=== PATIENT | male | born 1950 | race Two or more races ===

== ENCOUNTER 2022-12-04 21:43 | Inpatient (IN) | payer MEDICARE, BC ==
[~2022-12-04] VITALS: Ht 175.3 cm; Wt 70.3 kg
[~2022-12-04 21:43] MED LIST: ETOMIDATE 20 MG/10 ML VIAL ONE; PROPOFOL 200 MG/20 ML BOTTLE ONE; SUCCINYLCHOLINE CHLORIDE 200 MG/10 ML VIAL ONE
[2022-12-04] MEDS ORDERED: PIPERACILLIN SODIUM/TAZOBACTAM 3.375 G in IV DEXTROSE 5% 50 ML IV ONE (22:00)
[2022-12-04] MEDS ORDERED: AZITHROMYCIN IV 500 MG in IV DEXTROSE 5% 250 ML IV ONE (22:00)
[2022-12-04] MEDS ORDERED: CEFTAZIDIME 1 G in IV DEXTROSE 5% 50 ML IV ONE (22:00)
[2022-12-04] MEDS ORDERED: IV NORMAL SALINE 1000 ML BAG IV ONE (22:00)
[2022-12-04] MEDS ORDERED: CEFTAZIDIME 1 G VIAL ONE (22:05)
[2022-12-04] MEDS ORDERED: PIPERACILLIN/TAZOBACTAM/D5W 50 ML IV ONE (22:05)
[2022-12-04] MEDS ORDERED: AZITHROMYCIN 500MG/ D5W 250ML IVPB **ER PYXIS ONLY IV ONE (22:06)
[2022-12-04] MEDS ORDERED: PROPOFOL 100 ML IV PRN (22:15)
[2022-12-04] MEDS ORDERED: ETOMIDATE 20 MG/10 ML VIAL IV ONE (22:15)
[2022-12-04] MEDS ORDERED: PROPOFOL 200 MG/20 ML BOTTLE IV ONE (22:15)
[2022-12-04] MEDS ORDERED: SUCCINYLCHOLINE CHLORIDE 200 MG/10 ML VIAL IV ONE (22:15)
[2022-12-04 22:33] LABS: HEMATOCRIT 44.6 % (36.7-47.1); MEAN CORPUSCULAR HEMOGLOBIN 27.9 uug (23.8-33.4); MEAN CORPUSCULAR VOLUME 82.3 fL (73.0-96.2); PLATELET COUNT (AUTO) 230 K/uL (152-348)
[2022-12-04 22:49] LABS: CARBON DIOXIDE 20 mmol/L (21-32); CHLORIDE 93 mmol/L (98-107); CREATININE 1.5 mg/dL (0.6-1.3); GLUCOSE 169 mg/dL (74-106); POTASSIUM 4.8 mmol/L (3.5-5.1); UREA NITROGEN, BLOOD 18 mg/dL (7-18)
[2022-12-04 22:58] LABS: ABG BASE EXCESS -5.9 mmol/L; ABG HCO3 19.9 mmol/L; ABG PCO2 40.5 mmHg (35.0-45.0); ABG PO2 77.1 mmHg (75.0-100.0); ABG SITE RIGHT RADIAL; ABG TOTAL HEMOGLOBIN 14.3 G/dL (13.5-18.0); COHb 2.2 % (0.5-1.5); MetHb 0.2 % (0.0-1.5); O2Hb 90.8 % (94.0-97.0); VENT MODE VENT - A/C; VT, ABG 550 mL
[2022-12-04] MEDS ORDERED: LIDOCAINE 2% (GLYDO= UROJET) 10 ML JELLY MM ONE (23:00)
[2022-12-04 23:05] LABS: ALANINE AMINOTRANSFERASE 24 U/L (16-63); ALKALINE PHOSPHATASE 64 U/L (50-136); ASPARTATE AMINOTRANSFERASE 64 U/L (15-37); BILIRUBIN,TOTAL 1.1 mg/dL (0.2-1.0); TOTAL PROTEIN, SERUM 8.2 g/dL (6.4-8.2)
[2022-12-04 23:23] LABS: BILIRUBIN,DIRECT < 0.1 mg/dL (0.0-0.2)
[2022-12-05] VITALS (29 sets, daily range): BP systolic 80–100; BP diastolic 52–72
[2022-12-05] MEDS ORDERED: HALOPERIDOL LACTATE 5 MG/1 ML VIAL ONE
[2022-12-05] MEDS ORDERED: HALOPERIDOL LACTATE 5 MG/1 ML VIAL IV ONE
[2022-12-05 00:06] LABS: *BILIRUBIN,URIN NEGATIVE (NEGATIVE); *BLOOD, URINE 2+ (NEGATIVE); *CLARITY,URINE CLEAR (CLEAR); *COLOR,URINE YELLOW (YELLOW); *KETONES,URINE NEGATIVE (NEGATIVE); *UROBILINOGEN,URINE 0.2 E.U./dl (NORMAL); LEUKOCYTE ESTERASE ,URINE NEGATIVE (NEGATIVE); NITRITE, URINE NEGATIVE (NEGATIVE); PH,URINE 5.5 (5.0-8.0); UGLUCOSE NEGATIVE (NEGATIVE)
[2022-12-05] MEDS ORDERED: IV NORMAL SALINE 250 ML IV ONE (00:23)
[2022-12-05] MEDS ORDERED: IOHEXOL 350 100 ML INFUS..BTL ONE (00:23)
[2022-12-05] MEDS ORDERED: SWABABLE VALVE TRANSFER SET EA MC ONE (00:23)
[2022-12-05 00:42] LABS: BACTERIA,URINE FEW /HPF (NONE SEEN); SQUAMOUS EPITHELIAL CELL,UR NONE SEEN /HPF (NONE SEEN); WBC,URINE 0-3 /HPF (0-3)
[2022-12-05] MEDS ORDERED: ENOXAPARIN SODIUM 80 MG/0.8 ML DISP.SYRIN SQ SCH (01:15)
[2022-12-05] MEDS ORDERED: TERA2CAP4 PO (01:35)
[2022-12-05] MEDS ORDERED: VORI200T4 PO (01:35)
[2022-12-05] MEDS ORDERED: PROP20TA7 PO (01:35)
[2022-12-05] MEDS ORDERED: PRED2.5T PO (01:35)
[2022-12-05] MEDS ORDERED: BUSP5TAB3 PO (01:35)
[2022-12-05] MEDS ORDERED: GABA300C PO (01:35)
[2022-12-05] MEDS ORDERED: REMEDY ESSENTIAL ZINC PASTE 113 GM TP PRN (01:45)
[2022-12-05] MEDS ORDERED: ONDANSETRON 4 MG/2 ML VIAL IV PRN (01:45)
[2022-12-05] MEDS ORDERED: NOREPINEPHRINE BITARTRATE 8 MG in IV NORMAL SALINE 242 ML IV PRN ×2 (02:00→18:45)
[2022-12-05] MEDS ORDERED: CEFEPIME HCL 2 G in IV DEXTROSE 5% 100 ML IV SCH (03:00)
[2022-12-05] MEDS ORDERED: methylPREDNISolone SOD SUCC 125 MG/2 ML VIAL IV SCH (03:28)
[2022-12-05] MEDS: IV D5/ 0.9% NACL 1,000 ML IV PRN ×2 (03:44→10:33)
[2022-12-05] MEDS ORDERED: VANCOMYCIN IV 1,500 MG in IV DEXTROSE 5% 500 ML IV ONE (04:00)
[2022-12-05] MEDS ORDERED: NOREPINEPHRINE BITARTRATE 4 MG/4 ML VIAL IV ONE (04:02)
[2022-12-05] MEDS ORDERED: CEFEPIME HCL 1 G VIAL ONE (04:03)
[2022-12-05] MEDS ORDERED: VANCOMYCIN 1000 MG VIAL ONE (04:03)
[2022-12-05] MEDS ORDERED: VANCOMYCIN HCL 500 MG VIAL ONE (04:03)
[2022-12-05 06:27] LABS: HEMATOCRIT 39.8 % (36.7-47.1); MEAN CORPUSCULAR HEMOGLOBIN 26.5 uug (23.8-33.4); PLATELET COUNT (AUTO) 175 K/uL (152-348)
[2022-12-05 07:07] LABS: ALANINE AMINOTRANSFERASE 34 U/L (16-63); ALKALINE PHOSPHATASE 54 U/L (50-136); ASPARTATE AMINOTRANSFERASE 49 U/L (15-37); BILIRUBIN,TOTAL 0.3 mg/dL (0.2-1.0); CARBON DIOXIDE 23 mmol/L (21-32); CHLORIDE 100 mmol/L (98-107); CHOLESTEROL 86 mg/dL (<200); CREATININE 1.3 mg/dL (0.6-1.3); GLUCOSE 258 mg/dL (74-106); HDL CHOLESTEROL 18 mg/dL (40-60); MAGNESIUM 1.7 mg/dL (1.8-2.4); PHOSPHOROUS 2.2 mg/dL (2.5-4.9); POTASSIUM 4.2 mmol/L (3.5-5.1); TOTAL PROTEIN, SERUM 6.7 g/dL (6.4-8.2); TRIGLYCERIDES 186 MG/DL (30-150); UREA NITROGEN, BLOOD 17 mg/dL (7-18)
[2022-12-05] MEDS: PROPOFOL 100 ML IV PRN ×3 (07:15→23:55)
[2022-12-05] MEDS: PANTOPRAZOLE SODIUM 40 MG VIAL IV SCH (08:06)
[2022-12-05] MEDS: CEFEPIME HCL 2 G in IV DEXTROSE 5% 100 ML IV SCH ×2 (08:24→20:55)
[2022-12-05] MEDS: ASPIRIN 81 MG TAB.CHEW PO SCH (08:32)
[2022-12-05] MEDS ORDERED: DEXTROSE 50% 50 ML DISP.SYRIN IV PRN (08:45)
[2022-12-05 09:07] LABS: ABG BASE EXCESS -4.9 mmol/L; ABG HCO3 20.8 mmol/L; ABG PH 7.324 (7.350-7.450); ABG PO2 124.4 mmHg (75.0-100.0); ABG SITE RIGHT RADIAL; ABG TOTAL HEMOGLOBIN 14.7 G/dL (13.5-18.0); COHb 0.9 % (0.5-1.5); MetHb 0.2 % (0.0-1.5); O2Hb 97.1 % (94.0-97.0); VENT MODE VENT - A/C; VT, ABG 550 mL
[2022-12-05] MEDS: BLOOD SUGAR DIAGNOSTIC 1 EACH STRIP VI SCH ×4 (09:08→23:47)
[2022-12-05] MEDS: INSULIN REGULAR, HUMAN 300 UNIT/3 ML VIAL SQ PRN ×3 (09:10→18:08)
[2022-12-05] MEDS: MAGNESIUM SULFATE/D5W 100 ML IV SCH ×2 (09:28→10:25)
[2022-12-05] MEDS ORDERED: SODIUM PHOSPHATE MM 15 MMOL in IV NORMAL SALINE 250 ML IV ONE (12:00)
[2022-12-05] MEDS: methylPREDNISolone SOD SUCC 125 MG/2 ML VIAL IV SCH ×2 (13:33→21:01)
[2022-12-05] MEDS ORDERED: PRED5DRO24 LEFTEYE (18:56)
[2022-12-05] MEDS: prednisoLONE ACET 1% OPHT DROP 5 ML BOTTLE LEFTEYE SCH (20:56)
[2022-12-05] MEDS: ENOXAPARIN SODIUM 40 MG/0.4 ML DISP.SYRIN SQ SCH (21:00)
[2022-12-06] VITALS (37 sets, daily range): BP systolic 84–148; BP diastolic 51–77
[2022-12-06] MEDS: INSULIN REGULAR, HUMAN 300 UNIT/3 ML VIAL SQ PRN ×5 (00:04→23:33)
[2022-12-06] MEDS: prednisoLONE ACET 1% OPHT DROP 5 ML BOTTLE LEFTEYE SCH ×4 (02:20→21:16)
[2022-12-06] MEDS: PROPOFOL 100 ML IV PRN ×5 (04:19→20:15)
[2022-12-06 05:10] LABS: HEMATOCRIT 35.8 % (36.7-47.1); MEAN CORPUSCULAR HEMOGLOBIN 26.5 uug (23.8-33.4); MEAN CORPUSCULAR VOLUME 81.5 fL (73.0-96.2); PLATELET COUNT (AUTO) 165 K/uL (152-348)
[2022-12-06 05:30] LABS: BILIRUBIN,TOTAL 0.2 mg/dL (0.2-1.0); CREATININE 0.9 mg/dL (0.6-1.3); MAGNESIUM 2.4 mg/dL (1.8-2.4); PHOSPHOROUS 2.4 mg/dL (2.5-4.9); TOTAL PROTEIN, SERUM 6.3 g/dL (6.4-8.2)
[2022-12-06 05:39] LABS: THYROID STIMULATING HORMONE 0.188 mIU/mL (0.358-3.740)
[2022-12-06 06:28] LABS: ABG BASE EXCESS -5.1 mmol/L; ABG HCO3 19.6 mmol/L; ABG PCO2 35.5 mmHg (35.0-45.0); ABG PO2 76.5 mmHg (75.0-100.0); ABG SITE RIGHT RADIAL; ABG TOTAL HEMOGLOBIN 13.1 G/dL (13.5-18.0); COHb 0.9 % (0.5-1.5); MetHb 0.1 % (0.0-1.5); O2Hb 93.8 % (94.0-97.0); VENT MODE VENT - A/C; VT, ABG 550 mL
[2022-12-06] MEDS: methylPREDNISolone SOD SUCC 125 MG/2 ML VIAL IV SCH ×3 (06:28→21:11)
[2022-12-06] MEDS: BLOOD SUGAR DIAGNOSTIC 1 EACH STRIP VI SCH ×4 (06:31→23:31)
[2022-12-06] MEDS: CEFEPIME HCL 2 G in IV DEXTROSE 5% 100 ML IV SCH ×2 (08:37→20:16)
[2022-12-06] MEDS: PANTOPRAZOLE SODIUM 40 MG VIAL IV SCH (08:43)
[2022-12-06] MEDS: ASPIRIN 81 MG TAB.CHEW PO SCH (08:43)
[2022-12-06] MEDS: VANCOMYCIN IV 1,250 MG in IV DEXTROSE 5% 250 ML IV SCH ×2 (09:17→21:11)
[2022-12-06] MEDS: LORAZEPAM 2 MG/1 ML VIAL IV PRN (10:43)
[2022-12-06] MEDS: IPRATROPIUM BROMIDE 0.5 MG/2.5 ML NEBU NEB SCH ×2 (13:41→19:35)
[2022-12-06] MEDS: ALBUTEROL SULFATE 2.5 MG/3 ML NEBU NEB SCH ×2 (13:41→19:35)
[2022-12-06] MEDS ORDERED: SODIUM PHOSPHATE MM 15 MMOL in IV NORMAL SALINE 250 ML IV ONE (16:00)
[2022-12-06] MEDS: ENOXAPARIN SODIUM 40 MG/0.4 ML DISP.SYRIN SQ SCH (20:17)
[2022-12-07] VITALS (33 sets, daily range): BP systolic 97–155; BP diastolic 50–84
[2022-12-07] MEDS: ALBUTEROL SULFATE 2.5 MG/3 ML NEBU NEB SCH ×4 (00:59→19:29)
[2022-12-07] MEDS: IPRATROPIUM BROMIDE 0.5 MG/2.5 ML NEBU NEB SCH ×4 (00:59→19:29)
[2022-12-07] MEDS: PROPOFOL 100 ML IV PRN ×6 (02:17→23:00)
[2022-12-07] MEDS: methylPREDNISolone SOD SUCC 125 MG/2 ML VIAL IV SCH ×3 (06:08→21:41)
[2022-12-07] MEDS: prednisoLONE ACET 1% OPHT DROP 5 ML BOTTLE LEFTEYE SCH ×4 (06:09→20:48)
[2022-12-07 06:13] LABS: ABG BASE EXCESS -5.9 mmol/L; ABG HCO3 19.9 mmol/L; ABG PCO2 39.9 mmHg (35.0-45.0); ABG PH 7.315 (7.350-7.450); ABG PO2 81.8 mmHg (75.0-100.0); ABG SITE LEFT RADIAL; ABG TOTAL HEMOGLOBIN 12.8 G/dL (13.5-18.0); COHb 0.4 % (0.5-1.5); MetHb 0.2 % (0.0-1.5); O2Hb 94.2 % (94.0-97.0); VENT MODE VENT - A/C; VT, ABG 550 mL
[2022-12-07 06:16] LABS: HEMATOCRIT 37.2 % (36.7-47.1); MEAN CORPUSCULAR HEMOGLOBIN 26.6 uug (23.8-33.4); MEAN CORPUSCULAR VOLUME 81.5 fL (73.0-96.2); PLATELET COUNT (AUTO) 236 K/uL (152-348)
[2022-12-07 06:20] LABS: CREATININE 0.9 mg/dL (0.6-1.3); MAGNESIUM 2.7 mg/dL (1.8-2.4); PHOSPHOROUS 2.5 mg/dL (2.5-4.9)
[2022-12-07] MEDS: BLOOD SUGAR DIAGNOSTIC 1 EACH STRIP VI SCH ×4 (07:25→23:46)
[2022-12-07] MEDS: INSULIN REGULAR, HUMAN 300 UNIT/3 ML VIAL SQ PRN ×3 (07:27→23:51)
[2022-12-07] MEDS: CEFEPIME HCL 2 G in IV DEXTROSE 5% 100 ML IV SCH ×2 (08:45→20:05)
[2022-12-07] MEDS: PANTOPRAZOLE SODIUM 40 MG VIAL IV SCH (08:45)
[2022-12-07] MEDS: ASPIRIN 81 MG TAB.CHEW PO SCH (08:45)
[2022-12-07 09:39] LABS: ABG BASE EXCESS -3.4 mmol/L; ABG PCO2 41.1 mmHg (35.0-45.0); ABG PH 7.347 (7.350-7.450); ABG PO2 81.1 mmHg (75.0-100.0); ABG SITE RIGHT RADIAL; ABG TOTAL HEMOGLOBIN 12.5 G/dL (13.5-18.0); COHb 0.3 % (0.5-1.5); MetHb 0.2 % (0.0-1.5); O2Hb 94.5 % (94.0-97.0); VENT MODE VENT - A/C; VT, ABG 420 mL
[2022-12-07] MEDS ORDERED: IV D5 1/2 NS 1000 ML 1,000 ML IV ONE (11:45)
[2022-12-07] MEDS: LORAZEPAM 2 MG/1 ML VIAL IV PRN (15:59)
[2022-12-07] MEDS: ENOXAPARIN SODIUM 40 MG/0.4 ML DISP.SYRIN SQ SCH (20:47)
[2022-12-08] VITALS (26 sets, daily range): BP systolic 117–170; BP diastolic 60–92
[2022-12-08] MEDS: IPRATROPIUM BROMIDE 0.5 MG/2.5 ML NEBU NEB SCH ×4 (01:04→19:42)
[2022-12-08] MEDS: ALBUTEROL SULFATE 2.5 MG/3 ML NEBU NEB SCH ×4 (01:04→19:42)
[2022-12-08] MEDS: prednisoLONE ACET 1% OPHT DROP 5 ML BOTTLE LEFTEYE SCH ×4 (03:39→20:20)
[2022-12-08] MEDS: PROPOFOL 100 ML IV PRN ×5 (04:37→22:52)
[2022-12-08] MEDS: LORAZEPAM 2 MG/1 ML VIAL IV PRN (04:38)
[2022-12-08 05:47] LABS: HEMATOCRIT 35.7 % (36.7-47.1); MEAN CORPUSCULAR HEMOGLOBIN 26.7 uug (23.8-33.4); MEAN CORPUSCULAR VOLUME 81.1 fL (73.0-96.2); PLATELET COUNT (AUTO) 279 K/uL (152-348)
[2022-12-08 06:01] LABS: BILIRUBIN,TOTAL 0.3 mg/dL (0.2-1.0); MAGNESIUM 2.6 mg/dL (1.8-2.4); TOTAL PROTEIN, SERUM 6.2 g/dL (6.4-8.2)
[2022-12-08] MEDS: BLOOD SUGAR DIAGNOSTIC 1 EACH STRIP VI SCH ×3 (06:01→18:56)
[2022-12-08] MEDS: methylPREDNISolone SOD SUCC 125 MG/2 ML VIAL IV SCH (06:05)
[2022-12-08] MEDS: INSULIN REGULAR, HUMAN 300 UNIT/3 ML VIAL SQ PRN (06:07)
[2022-12-08] MEDS: CEFEPIME HCL 2 G in IV DEXTROSE 5% 100 ML IV SCH ×2 (07:31→20:03)
[2022-12-08 09:33] LABS: ABG BASE EXCESS -1.6 mmol/L; ABG HCO3 24.1 mmol/L; ABG PCO2 44.3 mmHg (35.0-45.0); ABG PH 7.353 (7.350-7.450); ABG SITE RIGHT RADIAL; ABG TOTAL HEMOGLOBIN 13.1 G/dL (13.5-18.0); COHb 0.7 % (0.5-1.5); MetHb 0.2 % (0.0-1.5); O2Hb 95.5 % (94.0-97.0); VENT MODE VENT - A/C; VT, ABG 420 mL
[2022-12-08] MEDS: PANTOPRAZOLE SODIUM 40 MG VIAL IV SCH (09:52)
[2022-12-08] MEDS: ASPIRIN 81 MG TAB.CHEW PO SCH (09:52)
[2022-12-08] MEDS: AMLODIPINE 5 MG TABLET NG SCH (13:12)
[2022-12-08] MEDS ORDERED: NINT150C PO (18:30)
[2022-12-08] MEDS ORDERED: AMLO-212 PO (18:37)
[2022-12-08] MEDS: ENOXAPARIN SODIUM 40 MG/0.4 ML DISP.SYRIN SQ SCH (21:14)
[2022-12-09] VITALS (23 sets, daily range): BP systolic 93–155; BP diastolic 41–92
[2022-12-09] MEDS: ALBUTEROL SULFATE 2.5 MG/3 ML NEBU NEB SCH ×4 (01:06→19:27)
[2022-12-09] MEDS: IPRATROPIUM BROMIDE 0.5 MG/2.5 ML NEBU NEB SCH ×4 (01:06→19:27)
[2022-12-09] MEDS: prednisoLONE ACET 1% OPHT DROP 5 ML BOTTLE LEFTEYE SCH ×4 (02:33→20:43)
[2022-12-09] MEDS: PROPOFOL 100 ML IV PRN ×7 (02:33→23:13)
[2022-12-09 05:05] LABS: HEMATOCRIT 38.6 % (36.7-47.1); MEAN CORPUSCULAR HEMOGLOBIN 26.5 uug (23.8-33.4); PLATELET COUNT (AUTO) 339 K/uL (152-348)
[2022-12-09 05:23] LABS: BILIRUBIN,TOTAL 0.2 mg/dL (0.2-1.0); CREATININE 0.8 mg/dL (0.6-1.3); MAGNESIUM 2.4 mg/dL (1.8-2.4); PHOSPHOROUS 2.3 mg/dL (2.5-4.9); POTASSIUM 3.5 mmol/L (3.5-5.1); TOTAL PROTEIN, SERUM 6.2 g/dL (6.4-8.2)
[2022-12-09] MEDS: methylPREDNISolone SOD SUCC 125 MG/2 ML VIAL IV SCH (05:29)
[2022-12-09] MEDS: BLOOD SUGAR DIAGNOSTIC 1 EACH STRIP VI SCH ×5 (05:35→23:35)
[2022-12-09] MEDS ORDERED: IPRATROPIUM BROMIDE 0.5 MG/2.5 ML NEBU ONE (07:15)
[2022-12-09] MEDS ORDERED: ALBUTEROL SULFATE 2.5 MG/3 ML NEBU ONE (07:15)
[2022-12-09] MEDS ORDERED: ASPIRIN 81 MG TAB.CHEW ONE (08:34)
[2022-12-09] MEDS ORDERED: AMLODIPINE 5 MG TABLET ONE (08:34)
[2022-12-09] MEDS ORDERED: PANTOPRAZOLE SODIUM 40 MG VIAL ONE (08:34)
[2022-12-09] MEDS: CEFEPIME HCL 2 G in IV DEXTROSE 5% 100 ML IV SCH ×2 (08:38→20:35)
[2022-12-09] MEDS: PANTOPRAZOLE SODIUM 40 MG VIAL IV SCH (08:39)
[2022-12-09] MEDS: ASPIRIN 81 MG TAB.CHEW PO SCH (08:39)
[2022-12-09] MEDS: AMLODIPINE 5 MG TABLET NG SCH (08:40)
[2022-12-09] MEDS ORDERED: PROPOFOL 100 ML ONE ×2 (09:54→12:49)
[2022-12-09] MEDS: INSULIN REGULAR, HUMAN 300 UNIT/3 ML VIAL SQ PRN (12:21)
[2022-12-09] MEDS ORDERED: NEUTRA PHOS PACKET NG ONE (17:00)
[2022-12-09] MEDS: VITAL AF 1.2 1,000 ML LIQUID GT PRN (20:23)
[2022-12-09] MEDS: LORAZEPAM 2 MG/1 ML VIAL IV PRN (20:34)
[2022-12-09] MEDS: ENOXAPARIN SODIUM 40 MG/0.4 ML DISP.SYRIN SQ SCH (21:14)
[2022-12-10] VITALS (24 sets, daily range): BP systolic 91–131; BP diastolic 49–73
[2022-12-10] MEDS: INSULIN REGULAR, HUMAN 300 UNIT/3 ML VIAL SQ PRN ×2 (00:01→13:53)
[2022-12-10] MEDS: ALBUTEROL SULFATE 2.5 MG/3 ML NEBU NEB SCH ×4 (01:02→19:23)
[2022-12-10] MEDS: IPRATROPIUM BROMIDE 0.5 MG/2.5 ML NEBU NEB SCH ×4 (01:02→19:23)
[2022-12-10] MEDS: PROPOFOL 100 ML IV PRN ×7 (02:16→22:06)
[2022-12-10] MEDS: prednisoLONE ACET 1% OPHT DROP 5 ML BOTTLE LEFTEYE SCH ×4 (02:47→20:05)
[2022-12-10 05:09] LABS: HEMATOCRIT 37.2 % (36.7-47.1); MEAN CORPUSCULAR HEMOGLOBIN 26.7 uug (23.8-33.4); MEAN CORPUSCULAR VOLUME 80.7 fL (73.0-96.2); PLATELET COUNT (AUTO) 313 K/uL (152-348)
[2022-12-10] MEDS: BLOOD SUGAR DIAGNOSTIC 1 EACH STRIP VI SCH ×4 (05:09→23:26)
[2022-12-10] MEDS: methylPREDNISolone SOD SUCC 125 MG/2 ML VIAL IV SCH (05:09)
[2022-12-10 05:48] LABS: BILIRUBIN,TOTAL 0.2 mg/dL (0.2-1.0); CREATININE 0.8 mg/dL (0.6-1.3); MAGNESIUM 2.1 mg/dL (1.8-2.4); PHOSPHOROUS 3.1 mg/dL (2.5-4.9); POTASSIUM 3.6 mmol/L (3.5-5.1); TOTAL PROTEIN, SERUM 5.7 g/dL (6.4-8.2)
[2022-12-10 06:25] LABS: ABG BASE EXCESS 4.7 mmol/L; ABG HCO3 30.8 mmol/L; ABG PCO2 51.4 mmHg (35.0-45.0); ABG PH 7.395 (7.350-7.450); ABG PO2 99.4 mmHg (75.0-100.0); ABG SITE RIGHT RADIAL; ABG TOTAL HEMOGLOBIN 13.4 G/dL (13.5-18.0); MetHb 0.2 % (0.0-1.5); O2Hb 96.2 % (94.0-97.0); VENT MODE VENT - A/C; VT, ABG 420 mL
[2022-12-10] MEDS: PANTOPRAZOLE SODIUM 40 MG VIAL IV SCH (09:59)
[2022-12-10] MEDS: CEFEPIME HCL 2 G in IV DEXTROSE 5% 100 ML IV SCH ×2 (09:59→19:58)
[2022-12-10] MEDS: AMLODIPINE 5 MG TABLET NG SCH (10:00)
[2022-12-10] MEDS: ASPIRIN 81 MG TAB.CHEW PO SCH (10:01)
[2022-12-10] MEDS: VITAL AF 1.2 1,000 ML LIQUID GT PRN (10:15)
[2022-12-10] MEDS: LORAZEPAM 2 MG/1 ML VIAL IV PRN (17:25)
[2022-12-10] MEDS: ENOXAPARIN SODIUM 40 MG/0.4 ML DISP.SYRIN SQ SCH (20:09)
[2022-12-11] VITALS (24 sets, daily range): BP systolic 96–166; BP diastolic 58–84
[2022-12-11] MEDS: IPRATROPIUM BROMIDE 0.5 MG/2.5 ML NEBU NEB SCH ×4 (01:25→20:01)
[2022-12-11] MEDS: ALBUTEROL SULFATE 2.5 MG/3 ML NEBU NEB SCH ×4 (01:25→20:01)
[2022-12-11] MEDS: prednisoLONE ACET 1% OPHT DROP 5 ML BOTTLE LEFTEYE SCH ×4 (03:11→20:31)
[2022-12-11] MEDS: PROPOFOL 100 ML IV PRN ×4 (03:25→13:29)
[2022-12-11 05:11] LABS: HEMATOCRIT 40.9 % (36.7-47.1); MEAN CORPUSCULAR HEMOGLOBIN 26.1 uug (23.8-33.4); MEAN CORPUSCULAR VOLUME 80.5 fL (73.0-96.2); PLATELET COUNT (AUTO) 349 K/uL (152-348)
[2022-12-11 05:29] LABS: CREATININE 0.8 mg/dL (0.6-1.3); PHOSPHOROUS 2.5 mg/dL (2.5-4.9); POTASSIUM 3.8 mmol/L (3.5-5.1)
[2022-12-11] MEDS: PANTOPRAZOLE ORAL SUSPENSION 40 MG SUSPDR.PKT NG SCH (05:49)
[2022-12-11] MEDS: methylPREDNISolone SOD SUCC 125 MG/2 ML VIAL IV SCH (05:49)
[2022-12-11] MEDS: BLOOD SUGAR DIAGNOSTIC 1 EACH STRIP VI SCH ×4 (05:56→23:57)
[2022-12-11] MEDS: LORAZEPAM 2 MG/1 ML VIAL IV PRN (06:54)
[2022-12-11] MEDS: CEFEPIME HCL 2 G in IV DEXTROSE 5% 100 ML IV SCH ×2 (07:47→20:26)
[2022-12-11] MEDS: AMLODIPINE 5 MG TABLET NG SCH (07:51)
[2022-12-11] MEDS: ASPIRIN 81 MG TAB.CHEW PO SCH (07:51)
[2022-12-11 08:30] LABS: ABG BASE EXCESS 6.2 mmol/L; ABG HCO3 32.4 mmol/L; ABG PCO2 52.6 mmHg (35.0-45.0); ABG PH 7.407 (7.350-7.450); ABG PO2 75.7 mmHg (75.0-100.0); ABG SITE RIGHT RADIAL; COHb 1.1 % (0.5-1.5); MetHb 0.3 % (0.0-1.5); O2Hb 92.9 % (94.0-97.0); VENT MODE VENT - A/C; VT, ABG 420 mL
[2022-12-11] MEDS: MIDAZOLAM HCL 50 MG in IV NORMAL SALINE 40 ML IV PRN (11:27)
[2022-12-11] MEDS: INSULIN REGULAR, HUMAN 300 UNIT/3 ML VIAL SQ PRN ×2 (11:55→17:31)
[2022-12-11] MEDS: ENOXAPARIN SODIUM 40 MG/0.4 ML DISP.SYRIN SQ SCH (20:29)
[2022-12-12] VITALS (24 sets, daily range): BP systolic 113–180; BP diastolic 57–95
[2022-12-12] MEDS: IPRATROPIUM BROMIDE 0.5 MG/2.5 ML NEBU NEB SCH ×4 (01:51→19:31)
[2022-12-12] MEDS: ALBUTEROL SULFATE 2.5 MG/3 ML NEBU NEB SCH ×4 (01:51→19:31)
[2022-12-12] MEDS: MIDAZOLAM HCL 50 MG in IV NORMAL SALINE 40 ML IV PRN (02:05)
[2022-12-12] MEDS: prednisoLONE ACET 1% OPHT DROP 5 ML BOTTLE LEFTEYE SCH ×4 (03:31→21:57)
[2022-12-12 05:17] LABS: HEMATOCRIT 41.5 % (36.7-47.1); MEAN CORPUSCULAR HEMOGLOBIN 26.1 uug (23.8-33.4); MEAN CORPUSCULAR VOLUME 80.4 fL (73.0-96.2); PLATELET COUNT (AUTO) 335 K/uL (152-348)
[2022-12-12] MEDS: methylPREDNISolone SOD SUCC 125 MG/2 ML VIAL IV SCH (05:30)
[2022-12-12] MEDS: PANTOPRAZOLE ORAL SUSPENSION 40 MG SUSPDR.PKT NG SCH (05:31)
[2022-12-12 05:34] LABS: CREATININE 0.7 mg/dL (0.6-1.3); MAGNESIUM 1.9 mg/dL (1.8-2.4); PHOSPHOROUS 2.1 mg/dL (2.5-4.9); POTASSIUM 3.5 mmol/L (3.5-5.1)
[2022-12-12] MEDS: BLOOD SUGAR DIAGNOSTIC 1 EACH STRIP VI SCH ×3 (05:53→17:18)
[2022-12-12] MEDS: INSULIN REGULAR, HUMAN 300 UNIT/3 ML VIAL SQ PRN ×2 (06:00→17:25)
[2022-12-12 06:16] LABS: ABG BASE EXCESS 5.6 mmol/L; ABG HCO3 29.9 mmol/L; ABG PCO2 42.4 mmHg (35.0-45.0); ABG PH 7.466 (7.350-7.450); ABG PO2 86.2 mmHg (75.0-100.0); ABG SITE LEFT RADIAL; ABG TOTAL HEMOGLOBIN 13.9 G/dL (13.5-18.0); COHb 1.3 % (0.5-1.5); MetHb 0.2 % (0.0-1.5); VENT MODE VENT - A/C; VT, ABG 420 mL
[2022-12-12] MEDS: CEFEPIME HCL 2 G in IV DEXTROSE 5% 100 ML IV SCH (08:06)
[2022-12-12] MEDS: ASPIRIN 81 MG TAB.CHEW PO SCH (09:15)
[2022-12-12] MEDS: AMLODIPINE 5 MG TABLET NG SCH ×2 (09:15→22:01)
[2022-12-12] MEDS: FENTANYL CITRATE/PF 1,000 MCG in IV NORMAL SALINE 80 ML IV PRN (11:31)
[2022-12-12] MEDS: PRECEDEX 400 MCG/100 ML BOTTLE 100 ML IV PRN (11:57)
[2022-12-12] MEDS ORDERED: NEUTRA PHOS PACKET PO ONE (16:00)
[2022-12-12] MEDS ORDERED: CEFEPIME HCL 2 G in IV DEXTROSE 5% 100 ML IV SCH (16:00)
[2022-12-12] MEDS: LORAZEPAM 2 MG/1 ML VIAL IV PRN (21:56)
[2022-12-12] MEDS: ENOXAPARIN SODIUM 40 MG/0.4 ML DISP.SYRIN SQ SCH (22:02)
[2022-12-13] VITALS (56 sets, daily range): BP systolic 76–199; BP diastolic 34–107
[2022-12-13] MEDS: ALBUTEROL SULFATE 2.5 MG/3 ML NEBU NEB SCH ×4 (00:48→21:02)
[2022-12-13] MEDS: IPRATROPIUM BROMIDE 0.5 MG/2.5 ML NEBU NEB SCH ×4 (00:48→21:02)
[2022-12-13] MEDS: LORAZEPAM 2 MG/1 ML VIAL IV PRN ×3 (02:29→21:18)
[2022-12-13] MEDS: prednisoLONE ACET 1% OPHT DROP 5 ML BOTTLE LEFTEYE SCH ×4 (03:00→20:28)
[2022-12-13] MEDS: BLOOD SUGAR DIAGNOSTIC 1 EACH STRIP VI SCH ×4 (06:00→17:07)
[2022-12-13] MEDS: PANTOPRAZOLE ORAL SUSPENSION 40 MG SUSPDR.PKT NG SCH (06:42)
[2022-12-13] MEDS: methylPREDNISolone SOD SUCC 125 MG/2 ML VIAL IV SCH (06:42)
[2022-12-13 07:45] LABS: ABG BASE EXCESS 13.6 mmol/L; ABG HCO3 39.3 mmol/L; ABG PCO2 53.3 mmHg (35.0-45.0); ABG PH 7.485 (7.350-7.450); ABG SITE RIGHT RADIAL; O2Hb 95.6 % (94.0-97.0); VENT MODE VENT - A/C; VT, ABG 420 mL
[2022-12-13] MEDS: INSULIN REGULAR, HUMAN 300 UNIT/3 ML VIAL SQ PRN (07:50)
[2022-12-13] MEDS: PRECEDEX 400 MCG/100 ML BOTTLE 100 ML IV PRN ×2 (08:45→20:27)
[2022-12-13] MEDS: AMLODIPINE 5 MG TABLET NG SCH ×2 (08:54→20:30)
[2022-12-13] MEDS: ASPIRIN 81 MG TAB.CHEW PO SCH (08:55)
[2022-12-13] MEDS: FENTANYL CITRATE/PF 1,000 MCG in IV NORMAL SALINE 80 ML IV PRN (11:01)
[2022-12-13] MEDS: ENOXAPARIN SODIUM 40 MG/0.4 ML DISP.SYRIN SQ SCH (20:26)
[2022-12-14] VITALS (24 sets, daily range): BP systolic 91–149; BP diastolic 57–96
[2022-12-14] MEDS: ALBUTEROL SULFATE 2.5 MG/3 ML NEBU NEB SCH ×4 (01:01→21:34)
[2022-12-14] MEDS: IPRATROPIUM BROMIDE 0.5 MG/2.5 ML NEBU NEB SCH ×4 (01:01→21:34)
[2022-12-14] MEDS: prednisoLONE ACET 1% OPHT DROP 5 ML BOTTLE LEFTEYE SCH ×4 (03:25→20:23)
[2022-12-14] MEDS: FENTANYL CITRATE/PF 1,000 MCG in IV NORMAL SALINE 80 ML IV PRN (04:56)
[2022-12-14] MEDS: methylPREDNISolone SOD SUCC 125 MG/2 ML VIAL IV SCH (05:03)
[2022-12-14] MEDS: PANTOPRAZOLE ORAL SUSPENSION 40 MG SUSPDR.PKT NG SCH (05:03)
[2022-12-14] MEDS: PRECEDEX 400 MCG/100 ML BOTTLE 100 ML IV PRN (05:17)
[2022-12-14 05:36] LABS: MEAN CORPUSCULAR HEMOGLOBIN 26.2 uug (23.8-33.4); MEAN CORPUSCULAR VOLUME 80.4 fL (73.0-96.2); PLATELET COUNT (AUTO) 302 K/uL (152-348)
[2022-12-14 05:41] LABS: CREATININE 0.8 mg/dL (0.6-1.3); POTASSIUM 3.3 mmol/L (3.5-5.1)
[2022-12-14] MEDS: BLOOD SUGAR DIAGNOSTIC 1 EACH STRIP VI SCH ×4 (06:45→18:00)
[2022-12-14] MEDS ORDERED: PROPOFOL 100 ML IV PRN (08:00)
[2022-12-14] MEDS: ASPIRIN 81 MG TAB.CHEW PO SCH (08:15)
[2022-12-14 10:34] LABS: ABG BASE EXCESS 12.8 mmol/L; ABG HCO3 39.2 mmol/L; ABG PCO2 56.4 mmHg (35.0-45.0); ABG PO2 107.1 mmHg (75.0-100.0); ABG SITE RIGHT RADIAL; ABG TOTAL HEMOGLOBIN 14.7 G/dL (13.5-18.0); COHb 1.4 % (0.5-1.5); CPAP,BG 8 cmH20; MetHb 0.1 % (0.0-1.5); O2Hb 96.1 % (94.0-97.0); VENT MODE CPAP8 PS8; VT, ABG 610 mL
[2022-12-14] MEDS ORDERED: DC PROPOFOL ONCE EXTUBATED XX PRN (11:00)
[2022-12-14] MEDS ORDERED: POTASSIUM CHLORIDE 20 MEQ POWDER PACKET GT ONE (11:15)
[2022-12-14] MEDS: INSULIN REGULAR, HUMAN 300 UNIT/3 ML VIAL SQ PRN (12:23)
[2022-12-14] MEDS: LORAZEPAM 2 MG/1 ML VIAL IV PRN ×2 (14:10→20:05)
[2022-12-14 17:34] LABS: ABG BASE EXCESS 8.5 mmol/L; ABG HCO3 31.9 mmol/L; ABG PCO2 39.6 mmHg (35.0-45.0); ABG PH 7.524 (7.350-7.450); ABG PO2 58.1 mmHg (75.0-100.0); ABG SITE RIGHT RADIAL; ABG TOTAL HEMOGLOBIN 14.6 G/dL (13.5-18.0); COHb 1.3 % (0.5-1.5); MetHb 0.3 % (0.0-1.5); O2Hb 88.7 % (94.0-97.0); VENT MODE HF - 35L 80%
[2022-12-14] MEDS: ENOXAPARIN SODIUM 40 MG/0.4 ML DISP.SYRIN SQ SCH (20:27)
[2022-12-15] VITALS (24 sets, daily range): BP systolic 92–140; BP diastolic 51–89
[2022-12-15] MEDS: BLOOD SUGAR DIAGNOSTIC 1 EACH STRIP VI SCH ×5 (00:01→23:35)
[2022-12-15] MEDS: IPRATROPIUM BROMIDE 0.5 MG/2.5 ML NEBU NEB SCH ×4 (02:08→19:49)
[2022-12-15] MEDS: ALBUTEROL SULFATE 2.5 MG/3 ML NEBU NEB SCH ×4 (02:09→19:49)
[2022-12-15] MEDS: prednisoLONE ACET 1% OPHT DROP 5 ML BOTTLE LEFTEYE SCH ×4 (02:30→20:26)
[2022-12-15] MEDS: PRECEDEX 400 MCG/100 ML BOTTLE 100 ML IV PRN ×2 (02:36→15:34)
[2022-12-15 05:33] LABS: HEMATOCRIT 40.2 % (36.7-47.1); MEAN CORPUSCULAR HEMOGLOBIN 26.3 uug (23.8-33.4); MEAN CORPUSCULAR VOLUME 79.7 fL (73.0-96.2); PLATELET COUNT (AUTO) 308 K/uL (152-348)
[2022-12-15 05:42] LABS: CREATININE 0.8 mg/dL (0.6-1.3); POTASSIUM 3.3 mmol/L (3.5-5.1)
[2022-12-15] MEDS: LORAZEPAM 2 MG/1 ML VIAL IV PRN ×2 (05:54→20:25)
[2022-12-15] MEDS: PANTOPRAZOLE ORAL SUSPENSION 40 MG SUSPDR.PKT NG SCH (06:06)
[2022-12-15] MEDS: methylPREDNISolone SOD SUCC 125 MG/2 ML VIAL IV SCH (06:06)
[2022-12-15] MEDS: INSULIN REGULAR, HUMAN 300 UNIT/3 ML VIAL SQ PRN ×4 (06:29→23:36)
[2022-12-15] MEDS ORDERED: DC PROPOFOL ONCE EXTUBATED XX PRN ×2 (07:00)
[2022-12-15] MEDS: VITAL AF 1.2 1,000 ML LIQUID GT PRN (08:00)
[2022-12-15] MEDS: POTASSIUM CHLORIDE 50 ML IV SCH ×5 (08:49→14:41)
[2022-12-15] MEDS: FENTANYL CITRATE/PF 1,000 MCG in IV NORMAL SALINE 80 ML IV PRN (09:27)
[2022-12-15] MEDS: ASPIRIN 81 MG TAB.CHEW PO SCH (09:29)
[2022-12-15] MEDS: QUETIAPINE FUMARATE 25 MG TABLET PO SCH ×2 (11:40→20:34)
[2022-12-15] MEDS: FUROSEMIDE 20 MG/2 ML VIAL IV SCH ×2 (11:41→20:33)
[2022-12-15] MEDS ORDERED: FUROSEMIDE 40 MG/4 ML VIAL IV ONE (12:45)
[2022-12-15] MEDS ORDERED: methylPREDNISolone SOD SUCC 125 MG/2 ML VIAL IV SCH (14:00)
[2022-12-15] MEDS: methylPREDNISolone SOD SUCC 40 MG/ML VIAL IV SCH ×2 (14:42→21:31)
[2022-12-15 18:24] LABS: ABG HCO3 31.6 mmol/L; ABG PCO2 39.8 mmHg (35.0-45.0); ABG PH 7.517 (7.350-7.450); ABG PO2 50.8 mmHg (75.0-100.0); ABG SITE LEFT RADIAL; ABG TOTAL HEMOGLOBIN 14.2 G/dL (13.5-18.0); COHb 1.1 % (0.5-1.5); MetHb 0.1 % (0.0-1.5); O2Hb 84.4 % (94.0-97.0); VENT MODE HIGH FLOW
[2022-12-15 18:24] LABS: ABG BASE EXCESS 7.1 mmol/L; ABG HCO3 32.5 mmol/L; ABG PCO2 48.9 mmHg (35.0-45.0); ABG PO2 93.6 mmHg (75.0-100.0); ABG SITE RIGHT RADIAL; COHb 1.2 % (0.5-1.5); MetHb 0.1 % (0.0-1.5); O2Hb 95.5 % (94.0-97.0); VENT MODE BIPAP - 20/8
[2022-12-15] MEDS: ENOXAPARIN SODIUM 40 MG/0.4 ML DISP.SYRIN SQ SCH (20:35)
[2022-12-16] VITALS (20 sets, daily range): BP systolic 107–150; BP diastolic 53–86
[2022-12-16] MEDS: IPRATROPIUM BROMIDE 0.5 MG/2.5 ML NEBU NEB SCH ×4 (01:02→18:38)
[2022-12-16] MEDS: ALBUTEROL SULFATE 2.5 MG/3 ML NEBU NEB SCH ×4 (01:03→18:38)
[2022-12-16] MEDS: prednisoLONE ACET 1% OPHT DROP 5 ML BOTTLE LEFTEYE SCH ×4 (04:14→21:36)
[2022-12-16] MEDS: LORAZEPAM 2 MG/1 ML VIAL IV PRN ×2 (04:20→21:36)
[2022-12-16 05:07] LABS: HEMATOCRIT 42.5 % (36.7-47.1); MEAN CORPUSCULAR VOLUME 80.2 fL (73.0-96.2); PLATELET COUNT (AUTO) 299 K/uL (152-348)
[2022-12-16 05:24] LABS: CREATININE 0.9 mg/dL (0.6-1.3); MAGNESIUM 2.5 mg/dL (1.8-2.4); POTASSIUM 3.8 mmol/L (3.5-5.1)
[2022-12-16] MEDS: BLOOD SUGAR DIAGNOSTIC 1 EACH STRIP VI SCH ×3 (06:00→18:33)
[2022-12-16] MEDS: PRECEDEX 400 MCG/100 ML BOTTLE 100 ML IV PRN ×2 (07:21→21:58)
[2022-12-16] MEDS: methylPREDNISolone SOD SUCC 40 MG/ML VIAL IV SCH ×2 (07:23→21:39)
[2022-12-16] MEDS: PANTOPRAZOLE ORAL SUSPENSION 40 MG SUSPDR.PKT NG SCH (07:23)
[2022-12-16] MEDS: FUROSEMIDE 20 MG/2 ML VIAL IV SCH ×2 (08:43→21:35)
[2022-12-16] MEDS: QUETIAPINE FUMARATE 25 MG TABLET PO SCH ×3 (08:43→21:36)
[2022-12-16] MEDS: ASPIRIN 81 MG TAB.CHEW PO SCH (08:43)
[2022-12-16] MEDS: FENTANYL CITRATE/PF 1,000 MCG in IV NORMAL SALINE 80 ML IV PRN (08:57)
[2022-12-16] MEDS: INSULIN REGULAR, HUMAN 300 UNIT/3 ML VIAL SQ PRN (13:01)
[2022-12-16 18:49] LABS: ABG BASE EXCESS 8.4 mmol/L; ABG HCO3 33.5 mmol/L; ABG PCO2 47.4 mmHg (35.0-45.0); ABG PH 7.467 (7.350-7.450); ABG PO2 78.1 mmHg (75.0-100.0); ABG SITE LEFT RADIAL; ABG TOTAL HEMOGLOBIN 15.2 G/dL (13.5-18.0); MetHb 0.2 % (0.0-1.5); O2Hb 93.7 % (94.0-97.0); VENT MODE BIPAP
[2022-12-16] MEDS: ENOXAPARIN SODIUM 40 MG/0.4 ML DISP.SYRIN SQ SCH (21:37)
[2022-12-17] VITALS (17 sets, daily range): BP systolic 99–174; BP diastolic 53–99
[2022-12-17] MEDS: BLOOD SUGAR DIAGNOSTIC 1 EACH STRIP VI SCH ×5 (00:17→22:08)
[2022-12-17] MEDS: INSULIN REGULAR, HUMAN 300 UNIT/3 ML VIAL SQ PRN ×3 (00:26→17:31)
[2022-12-17] MEDS: ALBUTEROL SULFATE 2.5 MG/3 ML NEBU NEB SCH ×4 (00:54→19:37)
[2022-12-17] MEDS: IPRATROPIUM BROMIDE 0.5 MG/2.5 ML NEBU NEB SCH ×4 (00:54→19:37)
[2022-12-17] MEDS: prednisoLONE ACET 1% OPHT DROP 5 ML BOTTLE LEFTEYE SCH ×4 (03:51→14:29)
[2022-12-17] MEDS: PANTOPRAZOLE ORAL SUSPENSION 40 MG SUSPDR.PKT NG SCH (05:23)
[2022-12-17 05:27] LABS: HEMATOCRIT 41.8 % (36.7-47.1); MEAN CORPUSCULAR HEMOGLOBIN 26.2 uug (23.8-33.4); MEAN CORPUSCULAR VOLUME 80.8 fL (73.0-96.2); PLATELET COUNT (AUTO) 294 K/uL (152-348)
[2022-12-17 05:43] LABS: ABG BASE EXCESS 8.3 mmol/L; ABG HCO3 33.5 mmol/L; ABG PCO2 47.7 mmHg (35.0-45.0); ABG PH 7.464 (7.350-7.450); ABG PO2 93.5 mmHg (75.0-100.0); ABG SITE RIGHT BRACHIAL; ABG TOTAL HEMOGLOBIN 14.9 G/dL (13.5-18.0); MetHb 0.2 % (0.0-1.5); O2Hb 95.6 % (94.0-97.0); VENT MODE BIPAP
[2022-12-17 05:45] LABS: CREATININE 0.8 mg/dL (0.6-1.3); POTASSIUM 4.2 mmol/L (3.5-5.1)
[2022-12-17] MEDS: LORAZEPAM 2 MG/1 ML VIAL IV PRN ×2 (07:47→17:09)
[2022-12-17] MEDS: FENTANYL CITRATE/PF 1,000 MCG in IV NORMAL SALINE 80 ML IV PRN ×2 (09:07→17:52)
[2022-12-17] MEDS: QUETIAPINE FUMARATE 25 MG TABLET PO SCH ×2 (09:55→21:00)
[2022-12-17] MEDS: ASPIRIN 81 MG TAB.CHEW PO SCH (09:55)
[2022-12-17] MEDS: methylPREDNISolone SOD SUCC 40 MG/ML VIAL IV SCH ×2 (09:55→22:05)
[2022-12-17] MEDS: FUROSEMIDE 20 MG/2 ML VIAL IV SCH ×2 (09:56→22:05)
[2022-12-17] MEDS: PRECEDEX 400 MCG/100 ML BOTTLE 100 ML IV PRN (13:12)
[2022-12-17] MEDS: ENOXAPARIN SODIUM 40 MG/0.4 ML DISP.SYRIN SQ SCH (21:00)
[2022-12-18] VITALS (17 sets, daily range): BP systolic 97–166; BP diastolic 53–95
[2022-12-18] MEDS: IPRATROPIUM BROMIDE 0.5 MG/2.5 ML NEBU NEB SCH ×4 (00:52→20:21)
[2022-12-18] MEDS: ALBUTEROL SULFATE 2.5 MG/3 ML NEBU NEB SCH ×4 (00:52→20:21)
[2022-12-18] MEDS: prednisoLONE ACET 1% OPHT DROP 5 ML BOTTLE LEFTEYE SCH ×4 (03:25→21:21)
[2022-12-18] MEDS: PRECEDEX 400 MCG/100 ML BOTTLE 100 ML IV PRN (04:22)
[2022-12-18] MEDS: LORAZEPAM 2 MG/1 ML VIAL IV PRN ×3 (05:06→17:54)
[2022-12-18] MEDS: INSULIN REGULAR, HUMAN 300 UNIT/3 ML VIAL SQ PRN ×3 (05:10→23:58)
[2022-12-18 05:17] LABS: HEMATOCRIT 45.9 % (36.7-47.1); MEAN CORPUSCULAR HEMOGLOBIN 26.3 uug (23.8-33.4); MEAN CORPUSCULAR VOLUME 81.2 fL (73.0-96.2); PLATELET COUNT (AUTO) 320 K/uL (152-348)
[2022-12-18 05:35] LABS: CREATININE 0.9 mg/dL (0.6-1.3); MAGNESIUM 2.5 mg/dL (1.8-2.4); PHOSPHOROUS 3.7 mg/dL (2.5-4.9); POTASSIUM 3.4 mmol/L (3.5-5.1)
[2022-12-18] MEDS: BLOOD SUGAR DIAGNOSTIC 1 EACH STRIP VI SCH ×4 (06:40→23:56)
[2022-12-18] MEDS: PANTOPRAZOLE ORAL SUSPENSION 40 MG SUSPDR.PKT NG SCH (06:41)
[2022-12-18] MEDS: methylPREDNISolone SOD SUCC 40 MG/ML VIAL IV SCH ×2 (09:23→20:45)
[2022-12-18] MEDS: FUROSEMIDE 20 MG/2 ML VIAL IV SCH ×2 (09:24→21:19)
[2022-12-18] MEDS: ASPIRIN 81 MG TAB.CHEW PO SCH (09:24)
[2022-12-18] MEDS: QUETIAPINE FUMARATE 25 MG TABLET PO SCH ×2 (09:24→21:19)
[2022-12-18] MEDS: POTASSIUM CHLORIDE 50 ML IV SCH ×3 (09:26→10:32)
[2022-12-18] MEDS: FENTANYL CITRATE/PF 1,000 MCG in IV NORMAL SALINE 80 ML IV PRN (15:45)
[2022-12-18] MEDS: ENOXAPARIN SODIUM 40 MG/0.4 ML DISP.SYRIN SQ SCH (21:18)
[2022-12-19] VITALS (24 sets, daily range): BP systolic 89–163; BP diastolic 52–116
[2022-12-19] MEDS: ALBUTEROL SULFATE 2.5 MG/3 ML NEBU NEB SCH ×5 (01:22→21:42)
[2022-12-19] MEDS: IPRATROPIUM BROMIDE 0.5 MG/2.5 ML NEBU NEB SCH ×4 (01:22→21:42)
[2022-12-19] MEDS: prednisoLONE ACET 1% OPHT DROP 5 ML BOTTLE LEFTEYE SCH ×4 (02:11→21:21)
[2022-12-19] MEDS: PRECEDEX 400 MCG/100 ML BOTTLE 100 ML IV PRN (02:11)
[2022-12-19 05:15] LABS: HEMATOCRIT 46.2 % (36.7-47.1); MEAN CORPUSCULAR HEMOGLOBIN 26.2 uug (23.8-33.4); MEAN CORPUSCULAR VOLUME 81.8 fL (73.0-96.2); PLATELET COUNT (AUTO) 323 K/uL (152-348)
[2022-12-19] MEDS: LORAZEPAM 2 MG/1 ML VIAL IV PRN ×4 (05:26→19:17)
[2022-12-19] MEDS: PANTOPRAZOLE ORAL SUSPENSION 40 MG SUSPDR.PKT NG SCH (05:34)
[2022-12-19 05:38] LABS: MAGNESIUM 2.7 mg/dL (1.8-2.4); PHOSPHOROUS 5.3 mg/dL (2.5-4.9); POTASSIUM 5.1 mmol/L (3.5-5.1); TOTAL PROTEIN, SERUM 8.9 g/dL (6.4-8.2)
[2022-12-19] MEDS: INSULIN REGULAR, HUMAN 300 UNIT/3 ML VIAL SQ PRN (06:06)
[2022-12-19] MEDS: BLOOD SUGAR DIAGNOSTIC 1 EACH STRIP VI SCH ×3 (06:06→18:39)
[2022-12-19] MEDS: QUETIAPINE FUMARATE 25 MG TABLET PO SCH ×2 (09:00→21:00)
[2022-12-19] MEDS: ASPIRIN 81 MG TAB.CHEW PO SCH (09:00)
[2022-12-19] MEDS: FUROSEMIDE 20 MG/2 ML VIAL IV SCH ×2 (09:11→21:10)
[2022-12-19] MEDS: methylPREDNISolone SOD SUCC 40 MG/ML VIAL IV SCH ×2 (09:11→21:08)
[2022-12-19] MEDS ORDERED: TPN/PPN PER PHARMACY IV PRN (10:30)
[2022-12-19] MEDS: diphenhydrAMINE 50 MG/1 ML VIAL IV PRN ×2 (10:56→19:17)
[2022-12-19] MEDS: hydrALAZINE HCL 20 MG/1 ML VIAL IV PRN ×2 (11:24→21:09)
[2022-12-19] MEDS: NICOTINE 21 MG/24HR PATCH TD SCH (12:00)
[2022-12-19] MEDS ORDERED: CEFEPIME HCL 1 G in IV DEXTROSE 5% 50 ML IV SCH (14:00)
[2022-12-19] MEDS: CEFEPIME HCL 2 G in IV DEXTROSE 5% 100 ML IV SCH (15:12)
[2022-12-19] MEDS: MORPHINE SULFATE 2 MG/1 ML DISP.SYRIN IV PRN ×3 (16:41→21:50)
[2022-12-19] MEDS ORDERED: TPN BAG #1 IV SCH (17:00)
[2022-12-19] MEDS ORDERED: ACETAMINOPHEN 650 MG SUPP.RECT RC PRN (17:15)
[2022-12-19] MEDS: ACETAMINOPHEN 650 MG SUPP.RECT RC PRN ×2 (18:40→19:17)
[2022-12-19] MEDS: ENOXAPARIN SODIUM 40 MG/0.4 ML DISP.SYRIN SQ SCH (21:13)
[2022-12-20] VITALS (23 sets, daily range): BP systolic 79–140; BP diastolic 34–111
[2022-12-20] MEDS: BLOOD SUGAR DIAGNOSTIC 1 EACH STRIP VI SCH ×4 (00:25→17:10)
[2022-12-20] MEDS: INSULIN REGULAR, HUMAN 300 UNIT/3 ML VIAL SQ PRN ×3 (00:35→17:43)
[2022-12-20] MEDS: diphenhydrAMINE 50 MG/1 ML VIAL IV PRN ×2 (00:44→21:25)
[2022-12-20] MEDS: LORAZEPAM 2 MG/1 ML VIAL IV PRN ×4 (00:44→20:20)
[2022-12-20] MEDS: ALBUTEROL SULFATE 2.5 MG/3 ML NEBU NEB SCH ×4 (02:56→19:35)
[2022-12-20] MEDS: IPRATROPIUM BROMIDE 0.5 MG/2.5 ML NEBU NEB SCH ×4 (02:56→19:35)
[2022-12-20] MEDS: CEFEPIME HCL 2 G in IV DEXTROSE 5% 100 ML IV SCH ×2 (03:34→13:31)
[2022-12-20] MEDS: prednisoLONE ACET 1% OPHT DROP 5 ML BOTTLE LEFTEYE SCH ×4 (03:35→21:22)
[2022-12-20 04:56] LABS: HEMATOCRIT 47.2 % (36.7-47.1); MEAN CORPUSCULAR VOLUME 80.7 fL (73.0-96.2); PLATELET COUNT (AUTO) 338 K/uL (152-348)
[2022-12-20 05:21] LABS: MAGNESIUM 2.5 mg/dL (1.8-2.4); PHOSPHOROUS 3.6 mg/dL (2.5-4.9); POTASSIUM 3.4 mmol/L (3.5-5.1)
[2022-12-20] MEDS: methylPREDNISolone SOD SUCC 40 MG/ML VIAL IV SCH ×2 (08:49→21:10)
[2022-12-20] MEDS: PANTOPRAZOLE SODIUM 40 MG VIAL IV SCH (08:49)
[2022-12-20] MEDS: QUETIAPINE FUMARATE 25 MG TABLET PO SCH ×2 (09:00→21:00)
[2022-12-20] MEDS: ASPIRIN 81 MG TAB.CHEW PO SCH (09:00)
[2022-12-20] MEDS ORDERED: POTASSIUM CHLORIDE 50 ML IV SCH (09:15)
[2022-12-20] MEDS: NICOTINE 21 MG/24HR PATCH TD SCH (09:43)
[2022-12-20 10:28] LABS: *CREATININE,URINE 185.9 mg/dL (30-125); *URINE TOTAL PROTEIN RANDOM 105.7 mg/dL (<150/24HR)
[2022-12-20] MEDS ORDERED: IV D5W 1000ML 1,000 ML IV SCH (10:30)
[2022-12-20 13:27] LABS: *BILIRUBIN,URIN NEGATIVE (NEGATIVE); *BLOOD, URINE 2+ (NEGATIVE); *CLARITY,URINE CLEAR (CLEAR); *COLOR,URINE YELLOW (YELLOW); *KETONES,URINE TRACE (NEGATIVE); *UROBILINOGEN,URINE 0.2 E.U./dl (NORMAL); LEUKOCYTE ESTERASE ,URINE 1+ (NEGATIVE); NITRITE, URINE NEGATIVE (NEGATIVE); UGLUCOSE NEGATIVE (NEGATIVE)
[2022-12-20 13:35] LABS: BACTERIA,URINE MODERATE /HPF (NONE SEEN); RBC,URINE 20-50 /HPF (0-3); SQUAMOUS EPITHELIAL CELL,UR FEW /HPF (NONE SEEN)
[2022-12-20 13:36] LABS: CALCIUM OXALATE CRYSTALS,UR FEW /HPF (NONE SEEN)
[2022-12-20] MEDS: MORPHINE SULFATE 2 MG/1 ML DISP.SYRIN IV PRN (13:50)
[2022-12-20] MEDS: IV D5W 1000ML 1,000 ML IV SCH ×2 (16:57→22:19)
[2022-12-20] MEDS ORDERED: TPN BAG #2 IV SCH ×4 (17:00)
[2022-12-20] MEDS ORDERED: IV FAT EMULSIONS 20% 250 ML in PREMIXED 1 EACH IV SCH (17:00)
[2022-12-20] MEDS: ENOXAPARIN SODIUM 40 MG/0.4 ML DISP.SYRIN SQ SCH (21:22)
[2022-12-21] VITALS (21 sets, daily range): BP systolic 94–131; BP diastolic 30–78
[2022-12-21 00:02] LABS: ABG PCO2 31.9 mmHg (35.0-45.0); ABG PH 7.529 (7.350-7.450); ABG PO2 174.3 mmHg (75.0-100.0); ABG SITE LEFT RADIAL; ABG TOTAL HEMOGLOBIN 16.3 G/dL (13.5-18.0); COHb 0.7 % (0.5-1.5); MetHb 0.3 % (0.0-1.5); O2Hb 98.2 % (94.0-97.0); VENT MODE BIPAP
[2022-12-21] MEDS: BLOOD SUGAR DIAGNOSTIC 1 EACH STRIP VI SCH ×4 (00:03→17:18)
[2022-12-21] MEDS: LORAZEPAM 2 MG/1 ML VIAL IV PRN ×2 (00:32→04:32)
[2022-12-21] MEDS: IPRATROPIUM BROMIDE 0.5 MG/2.5 ML NEBU NEB SCH ×4 (00:41→19:42)
[2022-12-21] MEDS: ALBUTEROL SULFATE 2.5 MG/3 ML NEBU NEB SCH ×4 (00:41→19:42)
[2022-12-21] MEDS: CEFEPIME HCL 2 G in IV DEXTROSE 5% 100 ML IV SCH ×2 (01:50→14:06)
[2022-12-21] MEDS: prednisoLONE ACET 1% OPHT DROP 5 ML BOTTLE LEFTEYE SCH ×4 (02:03→20:11)
[2022-12-21 04:52] LABS: HEMATOCRIT 44.1 % (36.7-47.1); MEAN CORPUSCULAR HEMOGLOBIN 26.4 uug (23.8-33.4); MEAN CORPUSCULAR VOLUME 81.9 fL (73.0-96.2); PLATELET COUNT (AUTO) 240 K/uL (152-348)
[2022-12-21 05:09] LABS: BILIRUBIN,TOTAL 0.7 mg/dL (0.2-1.0); CREATININE 1.3 mg/dL (0.6-1.3); MAGNESIUM 2.3 mg/dL (1.8-2.4); PHOSPHOROUS 2.8 mg/dL (2.5-4.9); POTASSIUM 3.4 mmol/L (3.5-5.1); TOTAL PROTEIN, SERUM 7.9 g/dL (6.4-8.2)
[2022-12-21] MEDS: INSULIN REGULAR, HUMAN 300 UNIT/3 ML VIAL SQ PRN ×3 (05:24→17:09)
[2022-12-21] MEDS: PANTOPRAZOLE SODIUM 40 MG VIAL IV SCH (08:13)
[2022-12-21] MEDS: ASPIRIN 81 MG TAB.CHEW PO SCH (08:13)
[2022-12-21] MEDS: QUETIAPINE FUMARATE 25 MG TABLET PO SCH ×2 (08:13→20:09)
[2022-12-21] MEDS: methylPREDNISolone SOD SUCC 40 MG/ML VIAL IV SCH ×2 (08:13→20:09)
[2022-12-21] MEDS: NICOTINE 21 MG/24HR PATCH TD SCH (08:15)
[2022-12-21] MEDS ORDERED: POTASSIUM CHLORIDE 20 MEQ POWDER PACKET GT ONE (11:00)
[2022-12-21] MEDS: POTASSIUM CHLORIDE 50 ML IV SCH ×2 (11:33→12:37)
[2022-12-21] MEDS ORDERED: TPN BAG #3 IV SCH (17:00)
[2022-12-21] MEDS: ENOXAPARIN SODIUM 40 MG/0.4 ML DISP.SYRIN SQ SCH (20:09)
== END 2022-12-21 20:45 | disposition short-term general hospital (02) | DRG 870 ==
LOC: ER 21:43 → CCU 23:00
PROVIDERS: ADMIT Nurse Practitioner Family; ATTEND Nurse Practitioner Family
PROC: 5A1955Z Respiratory Ventilation, Greater than 96 Consecutive Hours (ICD-10-PCS; principal; 2022-12-04)
PROC: 0BH17EZ Insertion of Endotracheal Airway into Trachea, Via Natural or Artificial Opening (ICD-10-PCS; 2022-12-04)
PROC: 05HY33Z Insertion of Infusion Device into Upper Vein, Percutaneous Approach (ICD-10-PCS; 2022-12-06)
PROC: 5A09457 Assistance with Respiratory Ventilation, 24-96 Consecutive Hours, Continuous Positive Airway Pressure (ICD-10-PCS; 2022-12-15)
PROC: 02HV33Z Insertion of Infusion Device into Superior Vena Cava, Percutaneous Approach (ICD-10-PCS; 2022-12-19)
DX: A41.9 Sepsis, unspecified organism (principal); I21.A1 Myocardial infarction type 2; J15.9 Unspecified bacterial pneumonia; N17.0 Acute kidney failure with tubular necrosis; G92.8 Other toxic encephalopathy; J96.22 Acute and chronic respiratory failure with hypercapnia; J96.21 Acute and chronic respiratory failure with hypoxia; E87.1 Hypo-osmolality and hyponatremia; E87.20 Acidosis, unspecified; E87.0 Hyperosmolality and hypernatremia; E44.0 Moderate protein-calorie malnutrition; J84.10 Pulmonary fibrosis, unspecified; Z99.81 Dependence on supplemental oxygen; E88.09 Other disorders of plasma-protein metabolism, not elsewhere classified; J43.9 Emphysema, unspecified; Z76.82 Awaiting organ transplant status; F32.A Depression, unspecified; E78.1 Pure hyperglyceridemia; N40.0 Benign prostatic hyperplasia without lower urinary tract symptoms; T38.0X5A Adverse effect of glucocorticoids and synthetic analogues, initial encounter; Z20.822 Contact with and (suspected) exposure to COVID-19; Z68.28 Body mass index [BMI] 28.0-28.9, adult; D64.9 Anemia, unspecified; I70.0 Atherosclerosis of aorta; R00.0 Tachycardia, unspecified; I10 Essential (primary) hypertension
CPT/HCPCS: 36415; 36569; 36600; 70030-TC; 71045; 71275; 76770; 82803; 83605; 83735; 84100; 84300; 84443; 84478; 84484; 85025; 85730; 86140; 87040; 93005; 93307; 94002; 94003; 94640; 94660; 94664; 94760; A4663; C9113; G0378; J0330; J0360; J0456; J0692; J0713; J1200; J1630; J1650; J1815; J1940; J2060; J2250; J2270; J2405; J2543; J2650; J2920; J2930; J3010; J3370; J3475; J3480; J3490; J3590; J7040; J7042; J7050; J7060; Q9967